=== PATIENT | male | born 1955 | race Caucasian/White ===

== ENCOUNTER 2017-11-16 06:21 | Day surgery (SDC) | payer OTHER ==
[~2017-11-16] VITALS: Ht 165.2 cm; Wt 97.8 kg
[2017-11-16] VITALS (15 sets, daily range): BP systolic 111–191; BP diastolic 72–90; PULSE 53–71; TEMP 98
[~2017-11-16 06:21] MED LIST: ANTIVERT 25MG25 MG PO; ASPI325T6 PO; ASPIRIN E.C. 8181 MG PO; BIOFREEZE 0.2%-1 GE1 TOP; CARDIZEM CD120 MG PO; FLONASE NASAL S16 GM NS; FOLIC ACID 40400 MCG PO; FOLIC ACID0.4 MG PO; IRON325 MG PO; LASIX 20MG TABL20 MG PO; LIPITOR20 MG PO; LOPRESSOR 225 MG/TAB PO; MASON NATURAL2000 IU PO; MICARDIS HCT 251 TAB PO; MICARDIS40 MG PO; MICARDIS80 MG PO; NORCO 325 MG-7.1 TAB PO; OMEGA-3 FISH1000 MG PO; OXYCONTIN 10MG10 MG PO; PERCOCET 325 MG1 TA2 PO; PLAVIX 75MG TAB75 MG PO; PRILOSEC 20MG20 MG PO; ROXICODONE 55 MG/TAB PO; SUDAFED30 MG PO; TYLENOL 325MG325 MG PO; VITAMIN C500 MG PO; ZANTAC 150MG T150 MG PO; ZOCOR80 MG PO
[2017-11-16 07:02] LABS: HEMATOCRIT 46.5 % (42.0-52.0); HEMOGLOBIN 15.4 g/dl (13.5-18.0); MEAN CELL VOLUME 89 fl (80.0-100.0); MEAN CORPUSCULAR HEMOGLOBIN 30 pg (27.0-31.0); MEAN CORPUSCULAR HGB CONC 33 g/dl (33.0-37.0); MEAN PLATELET VOLUME 11.1 fl (7.4-10.4); PLATELET COUNT 220 K/mm3 (130-400); PROTHROMBIN TIME 11.5 SECONDS (9.7-12.8); RED BLOOD COUNT 5.22 M/mm3 (4.20-5.60); REDCELL DISTRIBUTION WIDTH-CV 14.4 % (11.5-14.5)
[2017-11-16 07:19] LABS: CALCIUM 9.7 mg/dL (8.4-10.2); CREATININE, serum 1.94 mg/dL (0.66-1.25); POTASSIUM 4.8 mmol/L (3.4-5.0)
[2017-11-16] MEDS ORDERED: ZYLOPRIM 100MG100 MG PO (07:47)
[2017-11-16] MEDS ORDERED: COZAAR 25MG25 MG/TAB PO (07:48)
[2017-11-16] MEDS ORDERED: ASPIRIN E.C. 8181 MG PO (07:49)
[2017-11-16] MEDS ORDERED: JANUVIA50 MG PO (07:51)
[2017-11-16] MEDS ORDERED: NORCO 325 MG-51 TAB PO (07:52)
[2017-11-16] MEDS ORDERED: PLAVIX 75MG TAB75 MG PO (07:52)
== END 2017-11-16 15:26 | disposition short-term general hospital (02) ==
LOC: COL.CAR 06:21
PROVIDERS: Internal Medicine Cardiovascular Disease
DX: I25.10 Atherosclerotic heart disease of native coronary artery without angina pectoris (principal); E11.22 Type 2 diabetes mellitus with diabetic chronic kidney disease; I12.9 Hypertensive chronic kidney disease with stage 1 through stage 4 chronic kidney disease, or unspecified chronic kidney disease; Z95.1 Presence of aortocoronary bypass graft; N18.3 Chronic kidney disease, stage 3 (moderate); E78.5 Hyperlipidemia, unspecified; Z95.5 Presence of coronary angioplasty implant and graft
CPT/HCPCS: J2250; J3010; Q9967

== ENCOUNTER → 2019-12-16 | Outpatient (CLI) | payer OTHER ==
[~2019-12-16] MED LIST changes: +COZAAR 25MG25 MG/TAB PO; +JANUVIA50 MG PO; +LANTUS SOLOS100 U/ML SQ; +NORCO 325 MG-51 TAB PO; +VELTASSA8.4 GM PO; +ZYLOPRIM 100MG100 MG PO
== END ==
LOC: COL.RAD 12:11
DX: M79.672 Pain in left foot (principal); Z98.1 Arthrodesis status
CPT/HCPCS: J3301; Q9967

== ENCOUNTER 2021-09-08 07:08 | Day surgery (SDC) | payer MEDICARE ==
[2021-09-08] VITALS (14 sets, daily range): BP systolic 95–138; BP diastolic 57–83; PULSE 54–75; TEMP 97.8
[~2021-09-08] VITALS: Ht 167.6 cm; Wt 104.1 kg
[~2021-09-08 07:08] MED LIST changes: -LASIX 20MG TABL20 MG PO; +LASIX 40MG TABL40 MG PO
[2021-09-08 08:51] LABS: HEMATOCRIT 39.4 % (42.0-52.0); HEMOGLOBIN 13.1 g/dl (13.5-18.0); MEAN CELL VOLUME 86 fl (80.0-100.0); MEAN CORPUSCULAR HEMOGLOBIN 29 pg (27.0-31.0); MEAN CORPUSCULAR HGB CONC 33 g/dl (33.0-37.0); MEAN PLATELET VOLUME 10.8 fl (7.4-10.4); PLATELET COUNT 180 K/mm3 (130-400); RED BLOOD COUNT 4.57 M/mm3 (4.20-5.60); REDCELL DISTRIBUTION WIDTH-CV 14.9 % (11.5-14.5)
[2021-09-08 09:02] LABS: INR 1.1 (0.8-3.0)
[2021-09-08 09:05] LABS: PARTIAL THROMBOPLASTIN TIME 29.3 SECONDS (26.0-37.0)
[2021-09-08 09:12] LABS: CALCIUM 9.4 mg/dL (8.4-10.2); CREATININE, serum 2.17 mg/dL (0.72-1.25); POTASSIUM 5.3 mmol/L (3.5-4.5)
[2021-09-08] MEDS ORDERED: TOUJEO MAX300 UNIT/1 SQ (09:30)
[2021-09-08] MEDS ORDERED: ZYRTEC 10MG10 MG PO (09:31)
[2021-09-08] MEDS ORDERED: NARCAN4 MG NS (09:32)
[2021-09-08] MEDS ORDERED: ZYLOPRIM 100MG100 MG PO (09:32)
[2021-09-08] MEDS ORDERED: LIPITOR 40MG TA40 MG PO (09:33)
[2021-09-08] MEDS ORDERED: NORCO 325 MG-51 TAB PO (09:34)
[2021-09-08] MEDS ORDERED: NOVOLOG FLEX100 U/ML SQ (09:36)
--- NOTE | 2021-09-08 09:39 | NUR ---
PATIENT HERE FOR LEIGH/RHC. ANESTHESIA AT BEDSIDE AND ASSUMES CARE OF PATIENT FOR LEIGH. SEE ANESTHESIA RECORD FOR LEIGH VITALS, MEDICATION ADMINISTRATION AND SEDATION ASSESSMENTS. SMITHA RN ASSUMES CARE OF PATIENT FOR RHC. SEE MERGE FOR ALL RHC MEDICATION ADMINISTRATION TIMES/DOSAGES AND INTRA/POST SEDATION ASSESSMENTS.
--- NOTE | 2021-09-08 10:40 | NUR ---
Pt is back from lab manager. pt is alert and oriented, pwd with reg and unlabored respirations. venous puncture site to rt groin covered wtih clean gauze dressing, no hematoma. cms intact distal. Pt aware of poc for br x 4 hours. lunch ordered. SR on monitor, rate 60's. call light in reach.
[2021-09-08] MEDS ORDERED: FARXIGA5 PO (10:45)
--- NOTE | 2021-09-08 11:00 | NUR ---
RT FEMORAL SITE SOFT, however, there is blood on gauze dressing. I held pressure to site for 5 minutes, and with sterile technique, applied new dressing to site. wctm.
--- NOTE | 2021-09-08 15:00 | NUR ---
PT has done well during recovery. rt groin site looks good, no swelling or evidence of bleeding. dressing CDI. Pt has eaten lunch, and has been able to void several times using urinal. I have reviewed dc/fu and rx instructions with pt and . They verbalize understanding of instructions. Pt is amb around nurses station with no problem, steady gait. IV dc'd with cath intact. To exit via wheelchair at 1520.
== END 2021-09-08 15:21 | disposition home or self-care (01) ==
LOC: COL.CAR 07:08
PROVIDERS: Internal Medicine Cardiovascular Disease
DX: I27.20 Pulmonary hypertension, unspecified (principal); I65.29 Occlusion and stenosis of unspecified carotid artery; I25.10 Atherosclerotic heart disease of native coronary artery without angina pectoris; I12.9 Hypertensive chronic kidney disease with stage 1 through stage 4 chronic kidney disease, or unspecified chronic kidney disease; I35.0 Nonrheumatic aortic (valve) stenosis; N18.9 Chronic kidney disease, unspecified; E78.2 Mixed hyperlipidemia; I73.9 Peripheral vascular disease, unspecified; Z86.73 Personal history of transient ischemic attack (TIA), and cerebral infarction without residual deficits; Z79.899 Other long term (current) drug therapy; Z79.4 Long term (current) use of insulin; Z79.891 Long term (current) use of opiate analgesic; Z79.02 Long term (current) use of antithrombotics/antiplatelets; Z79.82 Long term (current) use of aspirin; Z87.891 Personal history of nicotine dependence; Z95.1 Presence of aortocoronary bypass graft
CPT/HCPCS: C1769; C1894; J1644; J2250; J2704; J3010

== ENCOUNTER → 2021-12-07 | Outpatient (CLI) | payer MEDICARE ==
[~2021-12-07] MED LIST changes: +FARXIGA5 PO; +LIPITOR 40MG TA40 MG PO; +NARCAN4 MG NS; +NOVOLOG FLEX100 U/ML SQ; +TOUJEO MAX300 UNIT/1 SQ; +ZYRTEC 10MG10 MG PO
== END ==
LOC: COL.RAD 11:58
DX: I27.20 Pulmonary hypertension, unspecified (principal)
CPT/HCPCS: A9540; A9567

== ENCOUNTER → 2022-01-24 | Outpatient (CLI) | payer MEDICARE, OTHER | LOC: COL.RAD 08:49 | DX: Z13.6 Encounter for screening for cardiovascular disorders (principal); Z86.79 Personal history of other diseases of the circulatory system ==

== ENCOUNTER 2022-05-09 08:06 | Day surgery (SDC) | payer MEDICARE, OTHER ==
[~2022-05-09] VITALS: Ht 165.1 cm; Wt 102.1 kg
[2022-05-09 09:05] VITALS: BP 129/72; PULSE 56; TEMP 97.7
[2022-05-09] MEDS ORDERED: LASIX 40MG TABL40 MG PO (09:08)
[2022-05-09] MEDS ORDERED: VOLTAREN GEL 1%1 TU TP (09:09)
[2022-05-09] MEDS ORDERED: VELTASSA8.4 GM PO (09:10)
[2022-05-09] MEDS ORDERED: SPIRIVA RE2.5 MCG/Ac IH (09:10)
[2022-05-09] MEDS ORDERED: NORCO 325 MG-51 TAB PO (09:11)
[2022-05-09] MEDS ORDERED: COZAAR 25MG25 MG/TAB PO (09:12)
[2022-05-09] MEDS ORDERED: LIPITOR 40MG TA40 MG PO (09:12)
[2022-05-09] MEDS ORDERED: ASPIRIN 81M81 MG/TA2 PO (09:12)
[2022-05-09] MEDS ORDERED: ZYLOPRIM 100MG100 MG PO (09:13)
[2022-05-09] MEDS ORDERED: PLAVIX 75MG TAB75 MG PO (09:13)
[2022-05-09] MEDS ORDERED: MASON NATURAL2000 IU PO (09:14)
[2022-05-09] MEDS ORDERED: LOPRESSOR 225 MG/TAB PO (09:14)
[2022-05-09 10:50] VITALS: BP 96/78; PULSE 55; TEMP 96.3
[2022-05-09 11:05] VITALS: BP 116/70; PULSE 58
[2022-05-09 11:20] VITALS: BP 125/46; PULSE 64
--- NOTE | 2022-05-09 11:26 | NUR ---
1125 - DC instructions and educatonal material revewed with the PT who verbalized understanding and signed the related paperwork. Questions answered to PT satisfaction. PT then dismissed from [facility] via wheelchair to the PT entrence by Alma ALBERTO. PT has DC packet and personal belongings and was transferred into the care of Tolu, who is driving private car.
--- NOTE | 2022-05-09 11:32 | NUR ---
1050 - PT arrives from procedure drowsy but oriented. PT assisted from cart to chair 2:1. Monitors applied and vitals obtained. PT denies pain and nausea. Warm blankets applied. PT provided w/ ice water and a warm muffin per request. PT oriented to room and call hitchcock, within reach. Visitor is present. Will monitor per intervals. 1105 - Vitals obtained. PT has finished snack and beverage. Call hitchcock remains within reach. has spoken with PT. 1120 - VSS. PT expressed desire to be discharged. Call hitchcock remains within reach if needed.
--- NOTE | 2022-05-09 11:44 | NUR ---
1140 - DC instructions and educational material reveiwed with the PT, who verbalized understanding and signed the related paperwork. IV discontinued. Catheter tip intact. Pressure bandage applied. NO redness or swelling noted. PT refused RN assistance changing into personal clothes. Call hitchcock remains within reach. 1150 - PT dismissed from endo via wheelchair to the PT entrence by Alma ALBERTO. PT has DC packet and personal belonings and was tranferred into the care of his , who is driving private car.
== END 2022-05-09 11:50 | disposition home or self-care (01) ==
LOC: SDCO 08:06
DX: Z12.11 Encounter for screening for malignant neoplasm of colon (principal); Z86.010 Personal history of colon polyps; K64.0 First degree hemorrhoids; K57.30 Diverticulosis of large intestine without perforation or abscess without bleeding; K21.9 Gastro-esophageal reflux disease without esophagitis; I12.9 Hypertensive chronic kidney disease with stage 1 through stage 4 chronic kidney disease, or unspecified chronic kidney disease; N18.30 Chronic kidney disease, stage 3 unspecified; Z95.1 Presence of aortocoronary bypass graft; Z79.82 Long term (current) use of aspirin; Z87.891 Personal history of nicotine dependence; Z95.5 Presence of coronary angioplasty implant and graft
CPT/HCPCS: J2704; J7030

== ENCOUNTER → 2023-02-09 | Outpatient (CLI) | payer MEDICARE, OTHER ==
[~2023-02-09] MED LIST changes: +ASPIRIN 81M81 MG/TA2 PO; +SPIRIVA RE2.5 MCG/Ac IH; +VOLTAREN GEL 1%1 TU TP
== END ==
LOC: COL.RAD 12:46
DX: Z12.2 Encounter for screening for malignant neoplasm of respiratory organs (principal); G47.30 Sleep apnea, unspecified; Z87.891 Personal history of nicotine dependence